=== PATIENT | male | born 1970 | race Caucasian/White ===

== ENCOUNTER 2016-11-15 16:40 | Inpatient (IN) | payer OTHER ==
[~2016-11-15] VITALS: Ht 167.6 cm; Wt 164.0 kg
[~2016-11-15 16:40] MED LIST: Antivert PO; CATAPRES0.2 MG PO; Ecotrin PO; FLEXERIL10 MG PO; HYDROCHLOROTHIA25 MG; Habitrol,Nicoderm CQ TD; LISINOPRIL10 MG; LISINOPRIL20 MG PO; LOPRESSOR25 MG; LOPRESSOR25 MG PO; METOPROLOL TART25 MG PO; NAPROXEN500 MG PO; NITROSTAT,NITR0.4 M1 SL; NORCO 5/3251 TABLET PO; Zestril,Prinivil PO
[2016-11-15 17:00] LABS: POINT-OF-CARE METER ID UU13113778
[2016-11-15 17:22] LABS: HEMATOCRIT 47.1 % (38.0-50.0); MCH 30.4 PG (29.0-34.0); MCHC 32.1 G/DL (30.0-36.0); MEAN PLAT.VOLUME 12.2 uM^3 (9.0-12.4); PLATELET COUNT 145 K/uL (156-360); RBC DIS.WIDTH-CV 16.1 % (11.8-14.6); RBC DIS.WIDTH-SD 53.5 % (39-53); RED BLOOD COUNT 4.96 M/uL (4.00-5.50); WHITE BLOOD COUNT 26.2 K/uL (4.1-10.2)
[2016-11-15 17:28] LABS: CHLORIDE 97 mEq/L (99-109); POTASSIUM 4.3 mEq/L (3.7-5.4); SODIUM 136 mEq/L (136-147)
[2016-11-15 17:29] LABS: GLUCOSE 133 mg/dL (70-99)
[2016-11-15 17:31] LABS: ANION GAP 11 MEQ/L (2-14)
[2016-11-15 17:33] LABS: GFR ESTIMATE (CALCULATED) > 59 mL/min/
[2016-11-15 17:34] LABS: UREA NITROGEN (BUN) 28 mg/dL (9-23)
[2016-11-15 23:14] LABS: TROP-I INTERPRETATION INDETERMINATE; TROPONIN-I 0.36 ng/mL (0.0-0.30)
[2016-11-15 23:23] LABS: D-DIMER ELISA 2.21 mg/L FEU (< 0.57)
[2016-11-16] VITALS (15 sets, daily range): BP systolic 0–152; BP diastolic 0–88
[2016-11-16] MEDS ORDERED: LISINOPRIL20 MG PO (00:42)
[2016-11-16] MEDS ORDERED: BP MED PO (00:43)
[2016-11-16] MEDS ORDERED: IBUPROFEN800 MG PO (00:44)
[2016-11-16 01:10] LABS: TOTAL BILIRUBIN 0.7 mg/dL (0.0-1.0)
[2016-11-16 01:11] LABS: ALKALINE PHOSPHATASE 107 IU/L (3-129)
[2016-11-16 01:13] LABS: DIRECT BILIRUBIN 0.5 mg/dL (0.0-0.3)
[2016-11-16 01:14] LABS: LIPASE 12 U/L (1.0-51.0)
[2016-11-16 04:03] LABS: ADD MIUA? YES; BILIRUBIN SMALL; BLOOD NEGATIVE; COLOR DK YELLOW ((YELLOW)); GLUCOSE (STRIP) NEGATIVE; KETONES TRACE; LEUKOCYTES NEGATIVE; NITRITE NEGATIVE; PROTEIN (STRIP) 30
[2016-11-16 04:24] LABS: BACTERIA 1+; CASTS PRESENT /LPF; COARSE GRANULAR CASTS 0-5 /LPF; CRYSTALS NONE SEEN; EPITHELIAL CELLS 1+; HYALINE CASTS 0-5 /LPF; MUCUS 1+; RED BLOOD CELLS 0-5 /HPF (0-5); UCUL ADDED? NO; WHITE BLOOD CELLS 0-5 /HPF (0-5)
[2016-11-16 05:09] LABS: METH RESISTANT S AUREUS PCR NEGATIVE (NEGATIVE)
[2016-11-16 05:13] LABS: PROBE CHECK PASS; SPECIMEN PROCESSING CONTROL PASS
[2016-11-16 05:31] LABS: MEAN PLAT.VOLUME 12.6 uM^3 (9.0-12.4); PLATELET COUNT 156 K/uL (156-360)
[2016-11-16 05:50] LABS: TROP-I INTERPRETATION INDETERMINATE; TROPONIN-I 0.35 ng/mL (0.0-0.30)
[2016-11-16 05:55] LABS: ALKALINE PHOSPHATASE 111 IU/L (3-129); ANION GAP 8 MEQ/L (2-14); CHLORIDE 95 MEQ/L (99-109); GFR ESTIMATE (CALCULATED) 54 mL/min/; GLUCOSE 132 mg/dL (70-99); POTASSIUM 4.8 MEQ/L (3.7-5.4); SAMPLE HEMOLYSIS CHECK 1; SAMPLE ICTERIC CHECK 0; SAMPLE LIPEMIA CHECK 0; SODIUM 133 MEQ/L (136-147); TOTAL BILIRUBIN 0.7 MG/DL (0.0-1.0); UREA NITROGEN (BUN) 32 mg/dL (9-23)
[2016-11-16 08:06] LABS: HEMATOCRIT 46.4 % (38.0-50.0); MCH 31.5 PG (29.0-34.0); MCHC 31.9 G/DL (30.0-36.0); MCV 98.7 FL (86-99); RBC DIS.WIDTH-CV 16.1 % (11.8-14.6); RBC DIS.WIDTH-SD 58.3 % (39-53)
[2016-11-16 08:08] LABS: WHITE BLOOD COUNT 30.3 K/uL (4.1-10.2)
[2016-11-16 11:26] LABS: TROP-I INTERPRETATION NEGATIVE; TROPONIN-I 0.25 ng/mL (0.0-0.30)
[2016-11-16 12:04] LABS: BASE EXCESS 3.3 mEq/L (-3 to +3); BICARBONATE 34.4 mEq/L (22-26); CARBOXY HGB 2.6 % (0-5); METHEMOGLOBIN 1.7 % (0-1.5); PCO2 88 mm Hg (35-45); PO2 113 mm Hg (80-100)
[2016-11-16 12:05] LABS: COMMENTS - BLOOD GASES A+C+; DEVICE HHFNC; O2 FLOW 60 L/MIN; SITE LR
[2016-11-16 12:06] LABS: FI02 80 %; TOTAL RESP RATE 8 resp/min
[2016-11-16 13:18] LABS: BASE EXCESS 3.5 mEq/L (-3 to +3); CARBOXY HGB 2.6 % (0-5); METHEMOGLOBIN 1.3 % (0-1.5); PO2 96 mm Hg (80-100)
[2016-11-16 13:19] LABS: COMMENTS - BLOOD GASES A+C+; DEVICE NIV; FI02 50 %; MODE SPONT; PCO2 83 mm Hg (35-45); PEEP 8 CM/H20; PRES. SUPPORT 15 CM/H2O; SITE LR; TOTAL RESP RATE 12 resp/min; pH 7.22 (7.35-7.45)
[2016-11-16] MEDS ORDERED: AMLODIPINE BESY10 MG PO (14:57)
[2016-11-16] MEDS ORDERED: METOPROLOL SUCC25 MG PO (14:57)
[2016-11-16 15:17] LABS: ANTI-HEPATITIS A VIRUS (IGM) Nonreactive; HAV INDEX 0.19; HPCA INDEX 0.33
[2016-11-16 15:19] LABS: ANTI-HEPATITIS B CORE (IGM) Nonreactive; HBC IgM INDEX 0.09
[2016-11-16 15:45] LABS: BASE EXCESS 4.7 mEq/L (-3 to +3); BICARBONATE 33.7 mEq/L (22-26); CARBOXY HGB 2.7 % (0-5); METHEMOGLOBIN 1.5 % (0-1.5); PCO2 70 mm Hg (35-45); PO2 72 mm Hg (80-100); SITE LR; pH 7.29 (7.35-7.45)
[2016-11-16 15:46] LABS: COMMENTS - BLOOD GASES A+C+; DEVICE NIV; FI02 35 %; MODE SPONT; PEEP 5 CM/H20; PRES. SUPPORT 18 CM/H2O; TOTAL RESP RATE 10 resp/min
[2016-11-16 18:28] LABS: BASE EXCESS 5.3 mEq/L (-3 to +3); BICARBONATE 33.5 mEq/L (22-26); CARBOXY HGB 2.8 % (0-5); METHEMOGLOBIN 1.5 % (0-1.5); PO2 66 mm Hg (80-100); pH 7.32 (7.35-7.45)
[2016-11-16 18:29] LABS: COMMENTS - BLOOD GASES A+C+; DEVICE NIV; FI02 30 %; MODE SPONT; PCO2 65 mm Hg (35-45); SITE LR; TOTAL RESP RATE 14 resp/min
[2016-11-16 18:30] LABS: CONTINUOUS POS AIRWAY PRESSURE 5 cm H2O; PRES. SUPPORT 18 CM/H2O
[2016-11-17] VITALS (24 sets, daily range): BP systolic 106–170; BP diastolic 56–88
[2016-11-17 02:51] LABS: BASE EXCESS 6.5 mEq/L (-3 to +3); BICARBONATE 35.2 mEq/L (22-26); COMMENTS - BLOOD GASES C+A+; DEVICE NIV; FI02 30 %; MECHANICAL RATE 10 resp/min; METHEMOGLOBIN 1.8 % (0-1.5); MODE SIMV; PCO2 70 mm Hg (35-45); PEEP 5 CM/H20; PO2 70 mm Hg (80-100); PRES. SUPPORT 18 CM/H2O; SITE RR; TIDAL VOLUME 650 ML; TOTAL RESP RATE 22 resp/min; pH 7.31 (7.35-7.45)
[2016-11-17 06:25] LABS: ALKALINE PHOSPHATASE 106 IU/L (3-129); ANION GAP 9 MEQ/L (2-14); CHLORIDE 98 MEQ/L (99-109); GFR ESTIMATE (CALCULATED) > 59 mL/min/; MAGNESIUM 2.2 mg/dl (1.3-2.7); POTASSIUM 4.7 MEQ/L (3.7-5.4); SAMPLE HEMOLYSIS CHECK 0; SAMPLE ICTERIC CHECK 0; SAMPLE LIPEMIA CHECK 0; SODIUM 136 MEQ/L (136-147); TOTAL BILIRUBIN 0.8 MG/DL (0.0-1.0); UREA NITROGEN (BUN) 29 mg/dL (9-23)
[2016-11-17 06:27] LABS: GLUCOSE 86 mg/dL (70-99)
[2016-11-17 07:13] LABS: HEMATOCRIT 44.6 % (38.0-50.0); MCH 31.1 PG (29.0-34.0); MCHC 32.1 G/DL (30.0-36.0); RBC DIS.WIDTH-CV 16.8 % (11.8-14.6); RBC DIS.WIDTH-SD 59.2 % (39-53); WHITE BLOOD COUNT 26.7 K/uL (4.1-10.2)
[2016-11-17 07:29] LABS: BASE EXCESS 6.9 mEq/L (-3 to +3); BICARBONATE 34.1 mEq/L (22-26); CARBOXY HGB 3.1 % (0-5); METHEMOGLOBIN 1.7 % (0-1.5); PCO2 59 mm Hg (35-45); PO2 46 mm Hg (80-100); pH 7.37 (7.35-7.45)
[2016-11-17 07:30] LABS: COMMENTS - BLOOD GASES A+C+; DEVICE RA; SITE LR; TOTAL RESP RATE 12 resp/min
[2016-11-17 07:58] LABS: PLATELET COUNT 278 K/uL (156-360)
[2016-11-18] VITALS (14 sets, daily range): BP systolic 117–162; BP diastolic 63–99
[2016-11-18 06:07] LABS: ALKALINE PHOSPHATASE 130 IU/L (3-129); ANION GAP 10 MEQ/L (2-14); CHLORIDE 96 MEQ/L (99-109); GFR ESTIMATE (CALCULATED) > 59 mL/min/; GLUCOSE 99 mg/dL (70-99); MAGNESIUM 1.9 mg/dl (1.3-2.7); SAMPLE HEMOLYSIS CHECK 0; SAMPLE ICTERIC CHECK 0; SAMPLE LIPEMIA CHECK 0; SODIUM 138 MEQ/L (136-147); UREA NITROGEN (BUN) 19 mg/dL (9-23)
[2016-11-18 06:08] LABS: TOTAL BILIRUBIN 0.6 MG/DL (0.0-1.0)
[2016-11-18 06:13] LABS: HEMATOCRIT 43.2 % (38.0-50.0); MCH 30.8 PG (29.0-34.0); MCHC 31.3 G/DL (30.0-36.0); MCV 98.4 FL (86-99); RBC DIS.WIDTH-CV 16.2 % (11.8-14.6); RBC DIS.WIDTH-SD 58.2 % (39-53); RED BLOOD COUNT 4.39 M/uL (4.00-5.50)
[2016-11-18 08:18] LABS: MEAN PLAT.VOLUME 12.9 uM^3 (9.0-12.4)
[2016-11-18 08:23] LABS: PLATELET COUNT 172 K/uL (156-360)
[2016-11-19] VITALS (10 sets, daily range): BP systolic 110–194; BP diastolic 77–93
[2016-11-20] VITALS: BP 164/77
[2016-11-20 02:00] VITALS: BP 154/86
[2016-11-20 04:00] VITALS: BP 160/85
[2016-11-20 08:00] VITALS: BP 156/83
[2016-11-20 08:36] LABS: HEMATOCRIT 42.6 % (38.0-50.0); MCH 30.7 PG (29.0-34.0); MCHC 32.2 G/DL (30.0-36.0); MCV 95.5 FL (86-99); MEAN PLAT.VOLUME 11.8 uM^3 (9.0-12.4); RBC DIS.WIDTH-CV 15.9 % (11.8-14.6); RBC DIS.WIDTH-SD 55.2 % (39-53); RED BLOOD COUNT 4.46 M/uL (4.00-5.50)
[2016-11-20 08:39] LABS: PLATELET COUNT 249 K/uL (156-360); WHITE BLOOD COUNT 17.7 K/uL (4.1-10.2)
[2016-11-20 08:52] LABS: ANION GAP 6 MEQ/L (2-14); CHLORIDE 96 MEQ/L (99-109); SAMPLE HEMOLYSIS CHECK 0; SAMPLE ICTERIC CHECK 0; SAMPLE LIPEMIA CHECK 0; SODIUM 138 MEQ/L (136-147)
[2016-11-20 08:58] LABS: GFR ESTIMATE (CALCULATED) > 59 mL/min/; GLUCOSE 109 mg/dL (70-99); UREA NITROGEN (BUN) 11 mg/dL (9-23)
[2016-11-20 12:00] VITALS: BP 141/79
[2016-11-20 16:00] VITALS: BP 166/90
[2016-11-21 02:07] VITALS: BP 159/77
[2016-11-21 07:21] LABS: HEMATOCRIT 42.1 % (38.0-50.0); MCH 30.9 PG (29.0-34.0); MCHC 32.3 G/DL (30.0-36.0); MCV 95.7 FL (86-99); MEAN PLAT.VOLUME 11.8 uM^3 (9.0-12.4); PLATELET COUNT 273 K/uL (156-360); RBC DIS.WIDTH-CV 15.9 % (11.8-14.6); RBC DIS.WIDTH-SD 55.6 % (39-53); WHITE BLOOD COUNT 17.1 K/uL (4.1-10.2)
[2016-11-21 07:37] VITALS: BP 168/83
[2016-11-21 08:03] LABS: ANION GAP 8 MEQ/L (2-14); CHLORIDE 97 MEQ/L (99-109); GFR ESTIMATE (CALCULATED) > 59 mL/min/; GLUCOSE 93 mg/dL (70-99); SAMPLE HEMOLYSIS CHECK 0; SAMPLE ICTERIC CHECK 0; SAMPLE LIPEMIA CHECK 0; SODIUM 142 MEQ/L (136-147); UREA NITROGEN (BUN) 12 mg/dL (9-23)
[2016-11-21 15:55] VITALS: BP 121/64
[2016-11-22] VITALS: BP 116/56
[2016-11-22 07:55] VITALS: BP 130/64
[2016-11-22 16:50] VITALS: BP 113/62
[2016-11-23] VITALS: BP 142/70
[2016-11-23 08:56] VITALS: BP 133/60
[2016-11-23 09:15] LABS: HEMATOCRIT 40.4 % (38.0-50.0); MCH 30.9 PG (29.0-34.0); MCHC 31.7 G/DL (30.0-36.0); MCV 97.6 FL (86-99); PLATELET COUNT 266 K/uL (156-360); RBC DIS.WIDTH-CV 16.2 % (11.8-14.6); RBC DIS.WIDTH-SD 57.8 % (39-53); RED BLOOD COUNT 4.14 M/uL (4.00-5.50); WHITE BLOOD COUNT 14.3 K/uL (4.1-10.2)
[2016-11-23 09:59] LABS: ANION GAP 5 MEQ/L (2-14); CHLORIDE 98 MEQ/L (99-109); GFR ESTIMATE (CALCULATED) > 59 mL/min/; POTASSIUM 3.8 MEQ/L (3.7-5.4); SAMPLE HEMOLYSIS CHECK 0; SAMPLE ICTERIC CHECK 0; SAMPLE LIPEMIA CHECK 0; SODIUM 142 MEQ/L (136-147); UREA NITROGEN (BUN) 12 mg/dL (9-23)
[2016-11-23 10:00] LABS: GLUCOSE 149 mg/dL (70-99); VANCOMYCIN, TROUGH 10.3 MCG/ML (10-20)
[2016-11-23 15:30] VITALS: BP 147/68
[2016-11-24] VITALS: BP 133/77
[2016-11-24 06:28] LABS: HEMATOCRIT 40.3 % (38.0-50.0); MCH 29.5 PG (29.0-34.0); MCHC 30.3 G/DL (30.0-36.0); MCV 97.6 FL (86-99); MEAN PLAT.VOLUME 12.1 uM^3 (9.0-12.4); PLATELET COUNT 285 K/uL (156-360); RBC DIS.WIDTH-CV 15.9 % (11.8-14.6); RBC DIS.WIDTH-SD 56.6 % (39-53); RED BLOOD COUNT 4.13 M/uL (4.00-5.50); WHITE BLOOD COUNT 15.3 K/uL (4.1-10.2)
[2016-11-24 06:44] LABS: ANION GAP 5 MEQ/L (2-14); C-REACTIVE PROTEIN 145.3 MG/L (0-10); CHLORIDE 98 MEQ/L (99-109); GFR ESTIMATE (CALCULATED) > 59 mL/min/; SAMPLE HEMOLYSIS CHECK 0; SAMPLE ICTERIC CHECK 0; SAMPLE LIPEMIA CHECK 0; SODIUM 141 MEQ/L (136-147); UREA NITROGEN (BUN) 9 mg/dL (9-23)
[2016-11-24 06:45] LABS: GLUCOSE 92 mg/dL (70-99)
[2016-11-24 07:45] VITALS: BP 143/66
[2016-11-24 14:54] VITALS: BP 113/65
[2016-11-24] MEDS ORDERED: DUONEB 2.5-0.5 M3 ML AEROSOL (17:51)
[2016-11-24] MEDS ORDERED: LOPRESSOR50 MG PO (17:52)
[2016-11-24] MEDS ORDERED: ASPIR-LOW81 MG PO (17:52)
[2016-11-24] MEDS ORDERED: LASIX40 MG PO (17:53)
[2016-11-25] VITALS: BP 105/57
[2016-11-25 07:36] VITALS: BP 116/65
[2016-11-25 15:22] VITALS: BP 120/57
[2016-11-26] VITALS: BP 112/54
[2016-11-26 07:59] VITALS: BP 117/67
[2016-11-26 12:00] VITALS: BP 140/75
[2016-11-26 16:08] VITALS: BP 124/67
[2016-11-26 20:00] VITALS: BP 127/59
[2016-11-27] VITALS: BP 113/57
[2016-11-27 03:59] VITALS: BP 130/73
[2016-11-27 08:13] VITALS: BP 126/73
[2016-11-27 15:56] VITALS: BP 136/70
[2016-11-27 23:53] VITALS: BP 125/67
[2016-11-28 08:01] VITALS: BP 137/75
[2016-11-28 09:42] LABS: HEMATOCRIT 39.7 % (38.0-50.0); MCH 30.9 PG (29.0-34.0); MCHC 31.7 G/DL (30.0-36.0); MCV 97.3 FL (86-99); MEAN PLAT.VOLUME 11.6 uM^3 (9.0-12.4); PLATELET COUNT 320 K/uL (156-360); RBC DIS.WIDTH-CV 15.7 % (11.8-14.6); RBC DIS.WIDTH-SD 55.5 % (39-53); RED BLOOD COUNT 4.08 M/uL (4.00-5.50); WHITE BLOOD COUNT 14.4 K/uL (4.1-10.2)
[2016-11-28 10:09] LABS: ANION GAP 3 MEQ/L (2-14); CHLORIDE 99 MEQ/L (99-109); GFR ESTIMATE (CALCULATED) > 59 mL/min/; GLUCOSE 152 mg/dL (70-99); POTASSIUM 3.8 MEQ/L (3.7-5.4); SAMPLE HEMOLYSIS CHECK 0; SAMPLE ICTERIC CHECK 0; SAMPLE LIPEMIA CHECK 0; SODIUM 142 MEQ/L (136-147); UREA NITROGEN (BUN) 8 mg/dL (9-23)
[2016-11-28 15:36] VITALS: BP 125/68
[2016-11-28 23:47] VITALS: BP 131/73
[2016-11-29 07:52] VITALS: BP 141/63
[2016-11-29 15:16] VITALS: BP 145/81
[2016-11-30 00:31] VITALS: BP 143/77
[2016-11-30 08:05] VITALS: BP 155/85
[2016-11-30 15:30] VITALS: BP 139/70
[2016-12-01] VITALS: BP 128/70
[2016-12-01 08:01] VITALS: BP 143/89
[2016-12-01] MEDS ORDERED: SENNA LAX8.6 MG PO (13:42)
[2016-12-01] MEDS ORDERED: SILDENAFIL20 MG PO (13:42)
[2016-12-01] MEDS ORDERED: BENZONATATE100 MG PO (13:42)
[2016-12-01] MEDS ORDERED: SSD25GM TP (13:42)
[2016-12-01] MEDS ORDERED: OXYCODONE HCL5 MG PO (13:42)
[2016-12-01] MEDS ORDERED: Zeasorb Antifungal T TP (13:42)
[2016-12-01 16:07] VITALS: BP 130/64
[2016-12-02 00:02] VITALS: BP 129/69
[2016-12-02 07:06] LABS: GFR ESTIMATE (CALCULATED) > 59 mL/min/; UREA NITROGEN (BUN) 8 mg/dL (9-23)
[2016-12-02 07:57] VITALS: BP 162/79
[2016-12-02 16:03] VITALS: BP 156/64
[2016-12-02 23:39] VITALS: BP 108/57
[2016-12-03 07:56] VITALS: BP 102/51
[2016-12-03 08:55] LABS: GFR ESTIMATE (CALCULATED) > 59 mL/min/; UREA NITROGEN (BUN) 10 mg/dL (9-23)
[2016-12-03 15:40] VITALS: BP 120/62
[2016-12-04 00:03] VITALS: BP 133/71
[2016-12-04 07:14] LABS: MCH 30.1 PG (29.0-34.0); MCHC 32.3 G/DL (30.0-36.0); MEAN PLAT.VOLUME 12.1 uM^3 (9.0-12.4); PLATELET COUNT 299 K/uL (156-360); RBC DIS.WIDTH-CV 15.5 % (11.8-14.6); RBC DIS.WIDTH-SD 52.6 % (39-53); RED BLOOD COUNT 4.18 M/uL (4.00-5.50)
[2016-12-04 07:15] LABS: MCV 93.3 FL (86-99); WHITE BLOOD COUNT 8.1 K/uL (4.1-10.2)
[2016-12-04 07:35] LABS: ANION GAP 7 MEQ/L (2-14); CHLORIDE 93 MEQ/L (99-109); GFR ESTIMATE (CALCULATED) > 59 mL/min/; GLUCOSE 99 mg/dL (70-99); POTASSIUM 3.4 MEQ/L (3.7-5.4); SAMPLE HEMOLYSIS CHECK 0; SAMPLE ICTERIC CHECK 0; SAMPLE LIPEMIA CHECK 0; SODIUM 135 MEQ/L (136-147); UREA NITROGEN (BUN) 12 mg/dL (9-23)
[2016-12-04 07:38] VITALS: BP 106/66
[2016-12-04 15:38] VITALS: BP 120/54
[2016-12-04 23:04] VITALS: BP 121/53
[2016-12-04 23:43] VITALS: BP 139/78
[2016-12-05 07:52] VITALS: BP 143/89
[2016-12-05] MEDS ORDERED: LINEZOLID600 MG PO (11:37)
[2016-12-05] MEDS ORDERED: PREDNISONE10 MG PO (11:37)
[2016-12-05 23:56] VITALS: BP 116/58
[2016-12-06 07:51] VITALS: BP 138/77
== END 2016-12-06 16:13 | disposition home health service (06) | DRG 189 ==
LOC: EME 16:40 → 4WEST 11-16 01:52 → EDOF 11-16 01:52 → 5SOUTH 11-16 01:52 → 4WEST 11-16 03:18 → 5SOUTH 11-20 18:55
PROVIDERS: Emergency Medicine; Hospitalist; Internal Medicine; Internal Medicine Infectious Disease; Internal Medicine Pulmonary Disease; Physician Assistant; Physician Assistant Medical
PROC: 5A09357 Assistance with Respiratory Ventilation, Less than 24 Consecutive Hours, Continuous Positive Airway Pressure (ICD-10-PCS; principal; 2016-11-17)
PROC: 0HDKXZZ Extraction of Right Lower Leg Skin, External Approach (ICD-10-PCS; 2016-11-22)
PROC: 0H9KXZX Drainage of Right Lower Leg Skin, External Approach, Diagnostic (ICD-10-PCS; 2016-11-24)
PROC: 0HDKXZZ Extraction of Right Lower Leg Skin, External Approach (ICD-10-PCS; 2016-12-01)
DX: J96.21 Acute and chronic respiratory failure with hypoxia (principal); J96.22 Acute and chronic respiratory failure with hypercapnia; E66.2 Morbid (severe) obesity with alveolar hypoventilation; J44.0 Chronic obstructive pulmonary disease with (acute) lower respiratory infection; J20.9 Acute bronchitis, unspecified; J44.1 Chronic obstructive pulmonary disease with (acute) exacerbation; N17.9 Acute kidney failure, unspecified; E87.1 Hypo-osmolality and hyponatremia; L03.115 Cellulitis of right lower limb; L97.819 Non-pressure chronic ulcer of other part of right lower leg with unspecified severity; R23.8 Other skin changes; I11.0 Hypertensive heart disease with heart failure; I50.43 Acute on chronic combined systolic (congestive) and diastolic (congestive) heart failure; L89.892 Pressure ulcer of other site, stage 2; I27.2 Other secondary pulmonary hypertension; I34.0 Nonrheumatic mitral (valve) insufficiency; K70.0 Alcoholic fatty liver; F17.210 Nicotine dependence, cigarettes, uncomplicated; R79.89 Other specified abnormal findings of blood chemistry; R94.31 Abnormal electrocardiogram [ECG] [EKG]; N50.3 Cyst of epididymis; Z68.43 Body mass index [BMI] 50.0-59.9, adult; Z91.19 Patient's noncompliance with other medical treatment and regimen; S52.501D Unspecified fracture of the lower end of right radius, subsequent encounter for closed fracture with routine healing
CPT/HCPCS: 36600; 71010; 71020; 71275; 73110; 74176; 75635; 76705; 76870; 76937; 80048; 80053; 80074; 80076; 80202; 81003; 82565; 82803; 82948; 83605; 83690; 83735; 83880; 84100; 84484; 84520; 85027; 85379; 86140; 87040; 87070; 87075; 87086; 87205; 87641; 93005; 93306; 93971; 94010; 94640; 94640 76; 94660; 94760; 94799; 97530 GO; 97530 GP; 99202; 99281; 99284; J0360; J0690; J0696; J1644; J1940; J2543; J2930; J3370; J7030; J7040; J7050; J7512

== ENCOUNTER 2017-04-26 14:22 | Emergency (ER) | payer OTHER ==
[~2017-04-26] VITALS: Ht 167.6 cm; Wt 160.6 kg
[~2017-04-26 14:22] MED LIST changes: +AMLODIPINE BESY10 MG PO; +ASPIR-LOW81 MG PO; +BENZONATATE100 MG PO; +BP MED PO; +DUONEB 2.5-0.5 M3 ML AEROSOL; +IBUPROFEN800 MG PO; +LASIX40 MG PO; +LINEZOLID600 MG PO; +LOPRESSOR50 MG PO; +METOPROLOL SUCC25 MG PO; +OXYCODONE HCL5 MG PO; +PREDNISONE10 MG PO; +SENNA LAX8.6 MG PO; +SILDENAFIL20 MG PO; +SSD25GM TP; +Zeasorb Antifungal T TP
[2017-04-26 15:29] VITALS: BP 143/82
[2017-04-26] MEDS ORDERED: BACTRIM,SEPT1 TABLET PO (15:42)
== END 2017-04-26 15:58 | disposition home or self-care (01) ==
LOC: EME 14:22
DX: L98.9 Disorder of the skin and subcutaneous tissue, unspecified (principal); R22.1 Localized swelling, mass and lump, neck
CPT/HCPCS: 99281; 99282

== ENCOUNTER 2017-08-20 12:38 | Inpatient (IN) | payer OTHER ==
[~2017-08-20] VITALS: Ht 167.6 cm; Wt 167.3 kg
[~2017-08-20 12:38] MED LIST changes: +BACTRIM,SEPT1 TABLET PO
[2017-08-20 14:29] LABS: HEMATOCRIT 48.2 % (38.0-50.0); MCHC 31.7 G/DL (30.0-36.0); MCV 94.5 FL (86-99); RBC DIS.WIDTH-CV 15.1 % (11.8-14.6); RBC DIS.WIDTH-SD 52.7 % (39-53); WHITE BLOOD COUNT 18.7 K/uL (4.1-10.2)
[2017-08-20 14:40] LABS: CHLORIDE 99 mEq/L (99-109); SODIUM 138 mEq/L (136-147)
[2017-08-20 14:41] LABS: GLUCOSE 87 mg/dL (70-99)
[2017-08-20 14:43] LABS: ANION GAP 11 MEQ/L (2-14)
[2017-08-20 14:45] LABS: GFR ESTIMATE (CALCULATED) > 59 mL/min/
[2017-08-20 14:46] LABS: UREA NITROGEN (BUN) 13 mg/dL (9-23)
[2017-08-20 15:22] LABS: PLAT.SUFFICIENCY ADEQUATE; PLATELET CLUMPS PRESENT - PLATELET COUNT APPEARS ADQ.; PLATELET COUNT UNABLE TO REPORT K/uL (156-360)
[2017-08-20 20:21] VITALS: BP 118/58
[2017-08-20 23:56] VITALS: BP 140/87
[2017-08-21 06:09] LABS: BASOPHIL COUNT 0.1 K/uL (0-0.1); EOSINOPHIL (%) 0.8 % (0-5); EOSINOPHIL COUNT 0.1 K/uL (0-0.3); HEMATOCRIT 47.5 % (38.0-50.0); IMMATURE GRANULOCYTE (%) 0.4 % (0.0-0.7); IMMATURE GRANULOCYTE COUNT 0.1 K/uL; INSTRUMENT ABS NEUTROPHIL CT 9.7 K/uL; LYMPHOCYTE COUNT 1.4 K/uL (1.0-2.8); MCH 30.2 PG (29.0-34.0); MCHC 31.4 G/DL (30.0-36.0); MCV 96.3 FL (86-99); MEAN PLAT.VOLUME 12.5 uM^3 (9.0-12.4); MONOCYTE (%) 8.6 % (3-12); MONOCYTE COUNT 1.1 K/uL (0-0.8); NEUTROPHIL (%) 78.8 % (45-76); NEUTROPHIL COUNT 9.7 K/uL (1.8-6.4); RBC DIS.WIDTH-CV 15.4 % (11.8-14.6); RBC DIS.WIDTH-SD 55.1 % (39-53); RED BLOOD COUNT 4.93 M/uL (4.00-5.50); WHITE BLOOD COUNT 12.3 K/uL (4.1-10.2)
[2017-08-21 06:16] LABS: PLATELET COUNT 132 K/uL (156-360)
[2017-08-21 06:38] LABS: ANION GAP 8 MEQ/L (2-14); CHLORIDE 100 MEQ/L (99-109); GFR ESTIMATE (CALCULATED) > 59 mL/min/; GLUCOSE 89 mg/dL (70-99); POTASSIUM 3.7 MEQ/L (3.7-5.4); SAMPLE HEMOLYSIS CHECK 0; SAMPLE ICTERIC CHECK 0; SAMPLE LIPEMIA CHECK 0; SODIUM 141 MEQ/L (136-147); UREA NITROGEN (BUN) 18 mg/dL (9-23)
[2017-08-21 07:27] VITALS: BP 133/77
[2017-08-21 15:23] VITALS: BP 147/76
[2017-08-21 21:19] VITALS: BP 135/73
[2017-08-21 23:59] VITALS: BP 131/67
[2017-08-22 04:14] VITALS: BP 133/74
[2017-08-22 06:59] LABS: HEMATOCRIT 45.4 % (38.0-50.0); MCH 30.3 PG (29.0-34.0); MCHC 31.5 G/DL (30.0-36.0); MCV 96.2 FL (86-99); MEAN PLAT.VOLUME 12.9 uM^3 (9.0-12.4); PLATELET COUNT 131 K/uL (156-360); RBC DIS.WIDTH-SD 53.1 % (39-53); RED BLOOD COUNT 4.72 M/uL (4.00-5.50); WHITE BLOOD COUNT 8.9 K/uL (4.1-10.2)
[2017-08-22 07:17] LABS: ANION GAP 6 MEQ/L (2-14); CHLORIDE 102 MEQ/L (99-109); GFR ESTIMATE (CALCULATED) > 59 mL/min/; GLUCOSE 100 mg/dL (70-99); POTASSIUM 3.7 MEQ/L (3.7-5.4); SAMPLE HEMOLYSIS CHECK 0; SAMPLE ICTERIC CHECK 0; SAMPLE LIPEMIA CHECK 0; SODIUM 142 MEQ/L (136-147); UREA NITROGEN (BUN) 14 mg/dL (9-23)
[2017-08-22 08:21] VITALS: BP 121/88
[2017-08-22] MEDS ORDERED: LOPRESSOR50 MG PO (11:05)
[2017-08-22] MEDS ORDERED: FUROSEMIDE40 MG PO (11:05)
[2017-08-22] MEDS ORDERED: MUPIROCIN15 GM TP (11:05)
[2017-08-22] MEDS ORDERED: AMLODIPINE BESY10 MG PO (11:05)
== END 2017-08-22 12:54 | disposition home or self-care (01) | DRG 189 ==
LOC: EME 12:38 → 5SOUTH 17:19 → EDOF 17:19 → ENRESERV 17:35 → 5SOUTH 20:01
PROVIDERS: Hospitalist; Internal Medicine
PROC: 5A09357 Assistance with Respiratory Ventilation, Less than 24 Consecutive Hours, Continuous Positive Airway Pressure (ICD-10-PCS; principal; 2017-08-20)
DX: J96.21 Acute and chronic respiratory failure with hypoxia (principal); L03.115 Cellulitis of right lower limb; I50.32 Chronic diastolic (congestive) heart failure; I11.0 Hypertensive heart disease with heart failure; I27.29 Other secondary pulmonary hypertension; I50.812 Chronic right heart failure; E66.2 Morbid (severe) obesity with alveolar hypoventilation; J44.9 Chronic obstructive pulmonary disease, unspecified; F17.200 Nicotine dependence, unspecified, uncomplicated; Z68.43 Body mass index [BMI] 50.0-59.9, adult; I89.0 Lymphedema, not elsewhere classified; L03.116 Cellulitis of left lower limb; I83.018 Varicose veins of right lower extremity with ulcer other part of lower leg; I83.028 Varicose veins of left lower extremity with ulcer other part of lower leg; L97.821 Non-pressure chronic ulcer of other part of left lower leg limited to breakdown of skin; L97.811 Non-pressure chronic ulcer of other part of right lower leg limited to breakdown of skin
CPT/HCPCS: 70360; 71020; 80048; 83605; 83880; 85025; 85027; 87040; 87070; 87075; 87205; 93005; 93971; 94640; 94640 76; 94660; 94760; 94799; 99202; 99281; 99285; J0690; J1650; J1940; J3370; J7030; J7040

== ENCOUNTER 2017-10-18 23:47 | Inpatient (IN) | payer OTHER ==
[~2017-10-18] VITALS: Ht 167.6 cm; Wt 165.0 kg
[~2017-10-18 23:47] MED LIST changes: +FUROSEMIDE40 MG PO; +MUPIROCIN15 GM TP
[2017-10-19] VITALS (21 sets, daily range): BP systolic 91–153; BP diastolic 65–100
[2017-10-19 00:06] LABS: HEMATOCRIT 50.8 % (38.0-50.0); MCH 29.3 PG (29.0-34.0); MCHC 29.9 G/DL (30.0-36.0); MCV 97.9 FL (86-99); NRBC (%) 0.5 /100 WBC (0-0); RBC DIS.WIDTH-CV 17.3 % (11.8-14.6); RBC DIS.WIDTH-SD 60.3 % (39-53); RED BLOOD COUNT 5.19 M/uL (4.00-5.50); WHITE BLOOD COUNT 17.2 K/uL (4.1-10.2)
[2017-10-19 00:15] LABS: INTER. NORMALIZED RATIO 1.1
[2017-10-19 00:17] LABS: CHLORIDE 98 mEq/L (99-109); POTASSIUM 4.5 mEq/L (3.7-5.4); SODIUM 143 mEq/L (136-147)
[2017-10-19 00:19] LABS: GLUCOSE 164 mg/dL (70-99)
[2017-10-19 00:20] LABS: ANION GAP 14 MEQ/L (2-14)
[2017-10-19 00:21] LABS: TOTAL BILIRUBIN 0.7 mg/dL (0.0-1.0)
[2017-10-19 00:23] LABS: ALKALINE PHOSPHATASE 92 IU/L (3-129); GFR ESTIMATE (CALCULATED) > 59 mL/min/ (58.99-99999)
[2017-10-19 00:24] LABS: UREA NITROGEN (BUN) 21 mg/dL (9-23)
[2017-10-19 00:28] LABS: TROP-I INTERPRETATION NEGATIVE; TROPONIN-I 0.04 ng/mL (0.0-0.30)
[2017-10-19 00:41] LABS: MEAN PLAT.VOLUME 12.5 uM^3 (9.0-12.4); PLAT.SUFFICIENCY ADEQUATE; PLATELET COUNT 212 K/uL (156-360)
[2017-10-19 01:07] LABS: BASE EXCESS 8.2 mEq/L (-3 to +3); CARBOXY HGB 3.2 % (0-5); METHEMOGLOBIN 0.9 % (0-1.5)
[2017-10-19 01:08] LABS: BICARBONATE 39.5 mEq/L (22-26); COMMENTS - BLOOD GASES C+; DEVICE MASK VENT; FI02 90 %; MODE SPONT; PCO2 90 mm Hg (35-45); PEEP 8 CM/H20; PO2 69 mm Hg (80-100); PRES. SUPPORT 12 CM/H2O; SITE LR; TOTAL RESP RATE 28 resp/min; pH 7.25 (7.35-7.45)
[2017-10-19 02:03] LABS: ADD MIUA? YES; BILIRUBIN NEGATIVE; BLOOD NEGATIVE; COLOR AMBER ((YELLOW)); GLUCOSE (STRIP) 50; KETONES NEGATIVE; LEUKOCYTES NEGATIVE; NITRITE NEGATIVE; PROTEIN (STRIP) >=500
[2017-10-19 02:21] LABS: BACTERIA 1+ /HPF; CASTS PRESENT /LPF; EPITHELIAL CELLS 1+ /HPF; FINE GRANULAR CASTS 0-5 /LPF; MUCUS 3+ /LPF; RED BLOOD CELLS 0-5 /HPF (0-5); WHITE BLOOD CELLS 0-5 /HPF (0-5)
[2017-10-19 02:34] LABS: BASE EXCESS 7.9 mEq/L (-3 to +3); BICARBONATE 37.1 mEq/L (22-26); COMMENTS - BLOOD GASES C+; DEVICE VENT; FI02 100 %; MECHANICAL RATE 20 resp/min; METHEMOGLOBIN 0.7 % (0-1.5); MODE ACVC; PCO2 72 mm Hg (35-45); PEEP 8 CM/H20; PO2 55 mm Hg (80-100); SITE LR; TIDAL VOLUME 500 ML; TOTAL RESP RATE 20 resp/min; pH 7.32 (7.35-7.45)
[2017-10-19 03:11] LABS: BASE EXCESS 6.6 mEq/L (-3 to +3); BICARBONATE 35.7 mEq/L (22-26); CARBOXY HGB 2.9 % (0-5); PCO2 71 mm Hg (35-45); PO2 50 mm Hg (80-100); pH 7.31 (7.35-7.45)
[2017-10-19 04:20] LABS: COMMENTS - BLOOD GASES C+A+; DEVICE VENT; FI02 100 %; MODE AC; SITE RR
[2017-10-19 04:21] LABS: MECHANICAL RATE 22 resp/min; PEEP 17 CM/H20; TIDAL VOLUME 550 ML; TOTAL RESP RATE 22 resp/min
[2017-10-19 05:40] LABS: METH RESISTANT S AUREUS PCR NEGATIVE (NEGATIVE)
[2017-10-19 06:00] LABS: PROBE CHECK PASS; SPECIMEN PROCESSING CONTROL PASS
[2017-10-19 18:28] LABS: BASE EXCESS 12.3 mEq/L (-3 to +3); BICARBONATE 37.4 mEq/L (22-26); CARBOXY HGB 2.4 % (0-5); COMMENTS - BLOOD GASES NA C+; DEVICE VENT; FI02 100 %; METHEMOGLOBIN 1.7 % (0-1.5); PCO2 48 mm Hg (35-45); PO2 60 mm Hg (80-100); SITE RR
[2017-10-19 18:29] LABS: MECHANICAL RATE 22 resp/min; MODE AC; PEEP 12 CM/H20; TIDAL VOLUME 550 ML; TOTAL RESP RATE 22 resp/min
[2017-10-20] VITALS (24 sets, daily range): BP systolic 111–148; BP diastolic 61–94
[2017-10-20 08:27] LABS: EOSINOPHIL (%) 0.2 % (0-5); HEMATOCRIT 41.1 % (38.0-50.0); IMMATURE GRANULOCYTE (%) 0.6 % (0.0-0.7); IMMATURE GRANULOCYTE COUNT 0.1 K/uL; LYMPHOCYTE COUNT 1.8 K/uL (1.0-2.8); MCH 29.5 PG (29.0-34.0); MCHC 32.4 G/DL (30.0-36.0); MEAN PLAT.VOLUME 12.4 uM^3 (9.0-12.4); MONOCYTE (%) 7.9 % (3-12); MONOCYTE COUNT 1.4 K/uL (0-0.8); NEUTROPHIL (%) 80.8 % (45-76); PLATELET COUNT 172 K/uL (156-360); RBC DIS.WIDTH-SD 55.8 % (39-53); RED BLOOD COUNT 4.51 M/uL (4.00-5.50); WHITE BLOOD COUNT 17.4 K/uL (4.1-10.2)
[2017-10-20 08:47] LABS: ALKALINE PHOSPHATASE 60 IU/L (3-129); ANION GAP 7 MEQ/L (2-14); CHLORIDE 102 MEQ/L (99-109); GFR ESTIMATE (CALCULATED) > 59 mL/min/ (58.99-99999); GLUCOSE 129 mg/dL (70-99); MAGNESIUM 2.1 mg/dl (1.3-2.7); POTASSIUM 3.9 MEQ/L (3.7-5.4); SAMPLE HEMOLYSIS CHECK 0; SAMPLE ICTERIC CHECK 0; SAMPLE LIPEMIA CHECK 0; SODIUM 142 MEQ/L (136-147); TOTAL BILIRUBIN 0.5 MG/DL (0.0-1.0); UREA NITROGEN (BUN) 23 mg/dL (9-23)
[2017-10-20 08:51] LABS: MCV 91.1 FL (86-99)
[2017-10-20 10:13] LABS: BASE EXCESS 11.2 mEq/L (-3 to +3); BICARBONATE 35.9 mEq/L (22-26); CARBOXY HGB 2.8 % (0-5); METHEMOGLOBIN 1.3 % (0-1.5); PCO2 46 mm Hg (35-45); PO2 56 mm Hg (80-100)
[2017-10-20 10:14] LABS: COMMENTS - BLOOD GASES NAC+; DEVICE 840; FI02 80 %; MECHANICAL RATE 22 resp/min; MODE A/C; PEEP 12 CM/H20; SITE RR; TIDAL VOLUME 550 ML; TOTAL RESP RATE 22 resp/min
[2017-10-21] VITALS (24 sets, daily range): BP systolic 112–168; BP diastolic 65–99
[2017-10-21 05:16] LABS: BASE EXCESS 8.3 mEq/L (-3 to +3); BICARBONATE 34.4 mEq/L (22-26); COMMENTS - BLOOD GASES C+; DEVICE VENT; FI02 90 %; METHEMOGLOBIN 0.9 % (0-1.5); PCO2 53 mm Hg (35-45); PO2 54 mm Hg (80-100); SITE LR; pH 7.42 (7.35-7.45)
[2017-10-21 05:17] LABS: MECHANICAL RATE 18 resp/min; MODE ACVC+; PEEP 12 CM/H20; TIDAL VOLUME 550 ML
[2017-10-21 05:20] LABS: EOSINOPHIL COUNT 0.3 K/uL (0-0.3); HEMATOCRIT 41.5 % (38.0-50.0); IMMATURE GRANULOCYTE (%) 0.3 % (0.0-0.7); INSTRUMENT ABS NEUTROPHIL CT 10.6 K/uL; LYMPHOCYTE COUNT 1.5 K/uL (1.0-2.8); MCH 28.7 PG (29.0-34.0); MCHC 31.1 G/DL (30.0-36.0); MCV 92.2 FL (86-99); MEAN PLAT.VOLUME 13.1 uM^3 (9.0-12.4); MONOCYTE (%) 8.3 % (3-12); MONOCYTE COUNT 1.1 K/uL (0-0.8); NEUTROPHIL (%) 78.3 % (45-76); NEUTROPHIL COUNT 10.6 K/uL (1.8-6.4); PLATELET COUNT 161 K/uL (156-360); RBC DIS.WIDTH-CV 17.2 % (11.8-14.6); RBC DIS.WIDTH-SD 57.6 % (39-53); WHITE BLOOD COUNT 13.6 K/uL (4.1-10.2)
[2017-10-21 06:05] LABS: ANION GAP 6 MEQ/L (2-14); CHLORIDE 105 MEQ/L (99-109); GFR ESTIMATE (CALCULATED) > 59 mL/min/ (58.99-99999); MAGNESIUM 2.3 mg/dl (1.3-2.7); SAMPLE HEMOLYSIS CHECK 2; SAMPLE ICTERIC CHECK 0; SAMPLE LIPEMIA CHECK 0; SODIUM 144 MEQ/L (136-147); UREA NITROGEN (BUN) 21 mg/dL (9-23)
[2017-10-21 06:07] LABS: GLUCOSE 80 mg/dL (70-99); POTASSIUM ND MEQ/L (3.7-5.4)
[2017-10-21 08:13] LABS: POTASSIUM 3.9 MEQ/L (3.7-5.4)
[2017-10-22] VITALS (23 sets, daily range): BP systolic 116–151; BP diastolic 68–90
[2017-10-22 07:54] LABS: EOSINOPHIL (%) 0 % (0-5); HEMATOCRIT 40.7 % (38.0-50.0); IMMATURE GRANULOCYTE (%) 0.4 % (0.0-0.7); INSTRUMENT ABS NEUTROPHIL CT 9.8 K/uL; LYMPHOCYTE COUNT 0.5 K/uL (1.0-2.8); MCH 28.7 PG (29.0-34.0); MCHC 31.9 G/DL (30.0-36.0); MCV 89.8 FL (86-99); MEAN PLAT.VOLUME 12.4 uM^3 (9.0-12.4); MONOCYTE (%) 5.3 % (3-12); MONOCYTE COUNT 0.6 K/uL (0-0.8); NEUTROPHIL (%) 89.7 % (45-76); NEUTROPHIL COUNT 9.8 K/uL (1.8-6.4); PLATELET COUNT 159 K/uL (156-360); RBC DIS.WIDTH-CV 16.5 % (11.8-14.6); RBC DIS.WIDTH-SD 54.2 % (39-53); RED BLOOD COUNT 4.53 M/uL (4.00-5.50); WHITE BLOOD COUNT 10.9 K/uL (4.1-10.2)
[2017-10-22 08:12] LABS: ANION GAP 7 MEQ/L (2-14); CHLORIDE 106 MEQ/L (99-109); MAGNESIUM 2.4 mg/dl (1.3-2.7); SAMPLE HEMOLYSIS CHECK 0; SAMPLE ICTERIC CHECK 0; SAMPLE LIPEMIA CHECK 0; SODIUM 142 MEQ/L (136-147)
[2017-10-22 08:14] LABS: BASE EXCESS 6.6 mEq/L (-3 to +3); BICARBONATE 30.5 mEq/L (22-26); CARBOXY HGB 2.1 % (0-5); METHEMOGLOBIN 1.4 % (0-1.5); pH 7.49 (7.35-7.45)
[2017-10-22 08:18] LABS: GFR ESTIMATE (CALCULATED) > 59 mL/min/ (58.99-99999); UREA NITROGEN (BUN) 16 mg/dL (9-23)
[2017-10-22 08:20] LABS: GLUCOSE 126 mg/dL (70-99)
[2017-10-22 08:25] LABS: COMMENTS - BLOOD GASES NAC+; DEVICE PB 840; FI02 100 %; MODE ACVC+; PCO2 40 mm Hg (35-45); PO2 68 mm Hg (80-100); SITE LR
[2017-10-22 08:26] LABS: MECHANICAL RATE 18 resp/min; PEEP 15 CM/H20; TIDAL VOLUME 650 ML; TOTAL RESP RATE 18 resp/min
[2017-10-23] VITALS (24 sets, daily range): BP systolic 127–157; BP diastolic 67–94
[2017-10-23 05:11] LABS: EOSINOPHIL (%) 0.5 % (0-5); EOSINOPHIL COUNT 0.1 K/uL (0-0.3); HEMATOCRIT 42.8 % (38.0-50.0); IMMATURE GRANULOCYTE (%) 0.3 % (0.0-0.7); INSTRUMENT ABS NEUTROPHIL CT 13.2 K/uL; LYMPHOCYTE COUNT 0.4 K/uL (1.0-2.8); MCH 27.7 PG (29.0-34.0); MCHC 30.6 G/DL (30.0-36.0); MCV 90.5 FL (86-99); MEAN PLAT.VOLUME 12.3 uM^3 (9.0-12.4); MONOCYTE (%) 3.9 % (3-12); MONOCYTE COUNT 0.6 K/uL (0-0.8); NEUTROPHIL (%) 92.5 % (45-76); NEUTROPHIL COUNT 13.2 K/uL (1.8-6.4); PLATELET COUNT 148 K/uL (156-360); RBC DIS.WIDTH-CV 16.7 % (11.8-14.6); RBC DIS.WIDTH-SD 55.6 % (39-53); RED BLOOD COUNT 4.73 M/uL (4.00-5.50); WHITE BLOOD COUNT 14.3 K/uL (4.1-10.2)
[2017-10-23 05:48] LABS: BASE EXCESS 5.8 mEq/L (-3 to +3); BICARBONATE 29.8 mEq/L (22-26); CARBOXY HGB 2.1 % (0-5); COMMENTS - BLOOD GASES C+; DEVICE VENT; FI02 100 %; MECHANICAL RATE 18 resp/min; METHEMOGLOBIN 1.7 % (0-1.5); MODE ACVC+; PCO2 40 mm Hg (35-45); PEEP 17 CM/H20; PO2 58 mm Hg (80-100); SITE RR; TIDAL VOLUME 650 ML; TOTAL RESP RATE 18 resp/min; pH 7.48 (7.35-7.45)
[2017-10-23 06:32] LABS: ANION GAP 9 MEQ/L (2-14); CHLORIDE 106 MEQ/L (99-109); GFR ESTIMATE (CALCULATED) > 59 mL/min/ (58.99-99999); GLUCOSE 114 mg/dL (70-99); MAGNESIUM 2.3 mg/dl (1.3-2.7); POTASSIUM 4.1 MEQ/L (3.7-5.4); SAMPLE HEMOLYSIS CHECK 0; SAMPLE ICTERIC CHECK 0; SAMPLE LIPEMIA CHECK 0; SODIUM 144 MEQ/L (136-147); TRIGLYCERIDES 257 MG/DL (Normal: <150); UREA NITROGEN (BUN) 22 mg/dL (9-23)
[2017-10-23 08:19] LABS: INTERNAL CONTROL VALID? YES
[2017-10-24] VITALS (21 sets, daily range): BP systolic 128–171; BP diastolic 77–101
[2017-10-24 05:43] LABS: EOSINOPHIL (%) 0.1 % (0-5); HEMATOCRIT 41.8 % (38.0-50.0); IMMATURE GRANULOCYTE (%) 0.4 % (0.0-0.7); IMMATURE GRANULOCYTE COUNT 0.1 K/uL; LYMPHOCYTE COUNT 0.7 K/uL (1.0-2.8); MCH 28.4 PG (29.0-34.0); MCHC 31.6 G/DL (30.0-36.0); MCV 89.9 FL (86-99); MEAN PLAT.VOLUME 12.9 uM^3 (9.0-12.4); MONOCYTE (%) 7.8 % (3-12); NEUTROPHIL (%) 86.2 % (45-76); PLATELET COUNT 177 K/uL (156-360); RBC DIS.WIDTH-CV 16.6 % (11.8-14.6); RBC DIS.WIDTH-SD 54.4 % (39-53); RED BLOOD COUNT 4.65 M/uL (4.00-5.50); WHITE BLOOD COUNT 12.7 K/uL (4.1-10.2)
[2017-10-24 06:20] LABS: ANION GAP 8 MEQ/L (2-14); CHLORIDE 106 MEQ/L (99-109); GFR ESTIMATE (CALCULATED) > 59 mL/min/ (58.99-99999); GLUCOSE 126 mg/dL (70-99); MAGNESIUM 2.3 mg/dl (1.3-2.7); POTASSIUM 3.7 MEQ/L (3.7-5.4); SAMPLE HEMOLYSIS CHECK 0; SAMPLE ICTERIC CHECK 0; SAMPLE LIPEMIA CHECK 0; SODIUM 144 MEQ/L (136-147); UREA NITROGEN (BUN) 28 mg/dL (9-23)
[2017-10-25] VITALS (24 sets, daily range): BP systolic 119–155; BP diastolic 69–93
[2017-10-25 05:34] LABS: EOSINOPHIL (%) 0.2 % (0-5); HEMATOCRIT 42.8 % (38.0-50.0); IMMATURE GRANULOCYTE (%) 0.5 % (0.0-0.7); IMMATURE GRANULOCYTE COUNT 0.1 K/uL; INSTRUMENT ABS NEUTROPHIL CT 11.7 K/uL; LYMPHOCYTE COUNT 0.7 K/uL (1.0-2.8); MCH 27.9 PG (29.0-34.0); MCHC 31.3 G/DL (30.0-36.0); MCV 89.2 FL (86-99); MEAN PLAT.VOLUME 12.4 uM^3 (9.0-12.4); MONOCYTE (%) 6.7 % (3-12); MONOCYTE COUNT 0.9 K/uL (0-0.8); NEUTROPHIL (%) 87.6 % (45-76); NEUTROPHIL COUNT 11.7 K/uL (1.8-6.4); PLATELET COUNT 188 K/uL (156-360); RBC DIS.WIDTH-CV 16.5 % (11.8-14.6); WHITE BLOOD COUNT 13.3 K/uL (4.1-10.2)
[2017-10-25 06:03] LABS: ANION GAP 10 MEQ/L (2-14); CHLORIDE 108 MEQ/L (99-109); GFR ESTIMATE (CALCULATED) > 59 mL/min/ (58.99-99999); GLUCOSE 128 mg/dL (70-99); MAGNESIUM 2.3 mg/dl (1.3-2.7); POTASSIUM 3.8 MEQ/L (3.7-5.4); SAMPLE HEMOLYSIS CHECK 0; SAMPLE ICTERIC CHECK 0; SAMPLE LIPEMIA CHECK 0; SODIUM 144 MEQ/L (136-147); UREA NITROGEN (BUN) 30 mg/dL (9-23)
[2017-10-26] VITALS (22 sets, daily range): BP systolic 111–151; BP diastolic 70–90
[2017-10-26 05:58] LABS: EOSINOPHIL (%) 0.6 % (0-5); EOSINOPHIL COUNT 0.1 K/uL (0-0.3); HEMATOCRIT 43.5 % (38.0-50.0); IMMATURE GRANULOCYTE (%) 0.5 % (0.0-0.7); IMMATURE GRANULOCYTE COUNT 0.1 K/uL; MCH 28.1 PG (29.0-34.0); MCHC 31.5 G/DL (30.0-36.0); MCV 89.3 FL (86-99); MEAN PLAT.VOLUME 11.7 uM^3 (9.0-12.4); MONOCYTE COUNT 1.4 K/uL (0-0.8); NEUTROPHIL (%) 86.9 % (45-76); PLATELET COUNT 193 K/uL (156-360); RBC DIS.WIDTH-CV 16.5 % (11.8-14.6); RBC DIS.WIDTH-SD 53.5 % (39-53); RED BLOOD COUNT 4.87 M/uL (4.00-5.50); WHITE BLOOD COUNT 19.6 K/uL (4.1-10.2)
[2017-10-26 06:32] LABS: ANION GAP 11 MEQ/L (2-14); CHLORIDE 104 MEQ/L (99-109); GFR ESTIMATE (CALCULATED) > 59 mL/min/ (58.99-99999); GLUCOSE 105 mg/dL (70-99); MAGNESIUM 2.2 mg/dl (1.3-2.7); POTASSIUM 3.6 MEQ/L (3.7-5.4); SAMPLE HEMOLYSIS CHECK 0; SAMPLE ICTERIC CHECK 0; SAMPLE LIPEMIA CHECK 0; SODIUM 143 MEQ/L (136-147); UREA NITROGEN (BUN) 34 mg/dL (9-23)
[2017-10-26 10:55] LABS: BASE EXCESS 4.6 mEq/L (-3 to +3); BICARBONATE 30.9 mEq/L (22-26); METHEMOGLOBIN 1.6 % (0-1.5); pH 7.39 (7.35-7.45)
[2017-10-26 10:56] LABS: COMMENTS - BLOOD GASES A+C+; DEVICE VENT; FI02 100 %; MECHANICAL RATE 18 resp/min; MODE A/C; PCO2 51 mm Hg (35-45); SITE RR; TIDAL VOLUME 650 ML; TOTAL RESP RATE 18 resp/min
[2017-10-26 10:57] LABS: PEEP 15 CM/H20; PO2 47 mm Hg (80-100)
[2017-10-26 20:15] LABS: ANION GAP 10 MEQ/L (2-14); CHLORIDE 103 MEQ/L (99-109); GFR ESTIMATE (CALCULATED) > 59 mL/min/ (58.99-99999); GLUCOSE 115 mg/dL (70-99); MAGNESIUM 2.3 mg/dl (1.3-2.7); POTASSIUM 3.8 MEQ/L (3.7-5.4); SAMPLE HEMOLYSIS CHECK 1; SAMPLE ICTERIC CHECK 0; SAMPLE LIPEMIA CHECK 0; SODIUM 143 MEQ/L (136-147); UREA NITROGEN (BUN) 32 mg/dL (9-23)
[2017-10-27] VITALS: BP 141/77
[2017-10-27 01:00] VITALS: BP 142/82
[2017-10-27 02:00] VITALS: BP 146/85
[2017-10-27 03:00] VITALS: BP 112/71
[2017-10-27 04:00] VITALS: BP 128/80
[2017-10-27 05:00] VITALS: BP 126/81
[2017-10-27 05:39] LABS: EOSINOPHIL (%) 0.2 % (0-5); EOSINOPHIL COUNT 0.1 K/uL (0-0.3); HEMATOCRIT 45.9 % (38.0-50.0); IMMATURE GRANULOCYTE (%) 0.5 % (0.0-0.7); IMMATURE GRANULOCYTE COUNT 0.1 K/uL; INSTRUMENT ABS NEUTROPHIL CT 18.5 K/uL; LYMPHOCYTE COUNT 1.1 K/uL (1.0-2.8); MCH 28.2 PG (29.0-34.0); MCHC 31.6 G/DL (30.0-36.0); MCV 89.1 FL (86-99); MEAN PLAT.VOLUME 12.5 uM^3 (9.0-12.4); MONOCYTE (%) 6.3 % (3-12); MONOCYTE COUNT 1.3 K/uL (0-0.8); NEUTROPHIL (%) 87.9 % (45-76); NEUTROPHIL COUNT 18.5 K/uL (1.8-6.4); PLATELET COUNT 210 K/uL (156-360); RBC DIS.WIDTH-CV 16.6 % (11.8-14.6); RBC DIS.WIDTH-SD 54.3 % (39-53); RED BLOOD COUNT 5.15 M/uL (4.00-5.50); WHITE BLOOD COUNT 21.1 K/uL (4.1-10.2)
[2017-10-27 06:05] LABS: ANION GAP 10 MEQ/L (2-14); CHLORIDE 103 MEQ/L (99-109); GFR ESTIMATE (CALCULATED) > 59 mL/min/ (58.99-99999); GLUCOSE 112 mg/dL (70-99); MAGNESIUM 2.4 mg/dl (1.3-2.7); POTASSIUM 3.5 MEQ/L (3.7-5.4); SAMPLE HEMOLYSIS CHECK 0; SAMPLE ICTERIC CHECK 0; SAMPLE LIPEMIA CHECK 0; SODIUM 145 MEQ/L (136-147); UREA NITROGEN (BUN) 34 mg/dL (9-23)
== END 2017-10-27 06:23 | disposition short-term general hospital (02) | DRG 207 ==
LOC: EME 23:47 → EDOF 10-19 03:10 → 4WEST 10-19 03:10 → ENRESERV 10-19 03:11 → 4WEST 10-19 04:04
PROVIDERS: Emergency Medicine; Internal Medicine; Internal Medicine Critical Care Medicine; Specialist
DX: J96.21 Acute and chronic respiratory failure with hypoxia (principal); J96.22 Acute and chronic respiratory failure with hypercapnia; I27.29 Other secondary pulmonary hypertension; J44.0 Chronic obstructive pulmonary disease with (acute) lower respiratory infection; J18.9 Pneumonia, unspecified organism; E66.2 Morbid (severe) obesity with alveolar hypoventilation; I11.0 Hypertensive heart disease with heart failure; I50.32 Chronic diastolic (congestive) heart failure; D75.1 Secondary polycythemia; I87.2 Venous insufficiency (chronic) (peripheral); I27.81 Cor pulmonale (chronic); I42.9 Cardiomyopathy, unspecified; F17.200 Nicotine dependence, unspecified, uncomplicated; Z23 Encounter for immunization
CPT/HCPCS: 36600; 71010; 71275; 80048; 80048 91; 80053; 80202; 81003; 82803; 83605; 83735; 83880; 84100; 84478; 84484; 84999; 85025; 85027; 85610; 85730; 87040; 87070; 87205; 87449; 87502; 87641; 87801; 90686; 93005; 93306; 93308; 93320; 93325; 94002; 94003; 94640; 94640 76; 94760; 99202; 99281; 99285; C1751; C1753; C1755; C8923; J0295; J0456; J1200; J1650; J1940; J1956; J2250; J2704; J2920; J2930; J3010; J3370; J7050; P9047